=== PATIENT | female | born 1985 | race Two or more races ===

== ENCOUNTER 2018-09-28 07:53 | Emergency (ER) | payer BC ==
[2018-09-28 08:11] VITALS: BP 131/87
--- NOTE | 2018-09-28 08:32 | EDM.PDOC ---
ED HPI GENERAL MEDICAL PROBLEM - General Chief Complaint: Abdominal Pain Stated Complaint: ABDOMINAL PAIN Time Seen by Provider: 09/28/18 08:04 Source of Information: Reports: Patient, Family (), RN Notes Reviewed History Limitations: Reports: No Limitations - History of Present Illness INITIAL COMMENTS - FREE TEXT/NARRATIVE: The patient states that she developed sudden-onset lower pelvic pain - she indicates pain across her lower pelvis symmetrically - at 07:45 this morning, when she got up. She describes the pain as crampy in character. It radiates to her midline lower back. She has not identified any modifiers. She has associated nausea, but no emesis. No recent fever. No recent constipation or diarrhea, although she reports that she feels gassy. No recent urinary symptoms. She denies prior similar symptoms, however, the patient's pointed out that she complains of similar pain every month, although not as severe, when she gets her menstrual period. The patient's LMP was 08/28/2018, and was otherwise normal. She is . The patient states that she took some Tylenol right around 07:45, when the pain developed. Patient's PCP is RUSS Hinton. Treatments GRAIN SAMPLER: Reports: Acetaminophen Pelvic Pain Score (Numeric/FACES): 10 - Related Data Allergies Allergy/AdvReac Type Severity Reaction Status Date / Time No Known Allergies Allergy Verified 09/28/18 08:11 Past Medical History Endocrine/Metabolic History: Reports: Diabetes, Gestational, Obesity/BMI 30+ Social & Family History - Tobacco Use Smoking Status *Q: Former Smoker Years of Tobacco use: 15 Packs/Tins Daily: 0.5 Month/Year Tobacco Last Used: Quit 2015 - Alcohol Use Alcohol Use History: Yes Alcohol Use Frequency: Rarely - Recreational Drug Use Recreational Drug Use: No - Living Situation & Occupation Living situation: Reports: , with Spouse, with Family (3 kids) Occupation: Unemployed ED ROS GENERAL - Review of Systems Review Of Systems: ROS reveals no pertinent complaints other than HPI. ED EXAM, RENAL/ - Physical Exam Exam: See Below Exam Limited By: No Limitations General Appearance: Alert, WD/WN, No Apparent Distress Eye Exam: Bilateral Eye: EOMI, Normal Inspection Ears: Normal External Exam, Hearing Grossly Normal Nose: Normal Inspection Throat/Mouth: Normal Inspection, Normal Lips, Normal Voice, No Airway Compromise Head: Atraumatic, Normocephalic Neck: Normal Inspection, Full Range of Motion Respiratory/Chest: No Respiratory Distress, Lungs Clear, Normal Breath Sounds, No Accessory Muscle Use Cardiovascular: Normal Peripheral Pulses, Regular Rate, Rhythm, No Gallop, No JVD, No Murmur, No Rub GI/Abdominal: Normal Bowel Sounds, Soft, Non-Tender (including to the lower pelvis and suprapubically), No Organomegaly, No Distention, No Abnormal Bruit, No Mass, Other (Obese) (Female) Exam: Deferred Rectal (Female) Exam: Deferred Back Exam: Normal Inspection, Full Range of Motion, Other (No tenderness to midline lower back, where the patient reports her pain radiates to). No: CVA Tenderness (L), CVA Tenderness (R) Extremities: Normal Inspection, Normal Range of Motion, No Pedal Edema, Normal Capillary Refill Neurological: Alert, Oriented, Normal Cognition, No Motor/Sensory Deficits Psychiatric: Normal Affect Skin Exam: Warm, Dry, Intact, Normal Color, No Rash Course - Vital Signs Last Recorded V/S: Last Vital Signs Temp 36.3 C 09/28/18 08:08 Pulse 88 09/28/18 08:08 Resp 16 09/28/18 08:08 BP 131/87 09/28/18 08:08 Pulse Ox 100 09/28/18 08:08 - Orders/Labs/Meds Labs: Laboratory Tests 09/28/18 09/28/18 Range/Units 08:31 08:31 Urine Color Yellow (Yellow) Urine Appearance Clear (Clear) Urine pH 6.0 (5.0-8.0) Ur Specific [place] > or = 1.030 (1.005-1.030) Urine Protein Negative (Negative) Urine Glucose (UA) Negative (Negative) Urine Ketones Negative (Negative) Urine Occult Blood Negative (Negative) Urine Nitrite Negative (Negative) Urine Bilirubin Negative (Negative) Urine Urobilinogen 0.2 (0.2-1.0) Ur Leukocyte Esterase Negative (Negative) Urine RBC 0-5 (0-5) /hpf Urine WBC Not seen (0-5) /hpf Ur Squamous Epith Cells 0-5 (0-5) /hpf Urine Bacteria Not seen (FEW) /hpf Urine Mucus Not seen (FEW) /hpf Urine HCG, Qual Negative (NEGATIVE) - Re-Assessments/Exams Free Text/Narrative Re-Assessment/Exam: 09/28/18 08:26 The patient is most likely experiencing premenstrual cramps. It is been one month and one day since her last menstrual period - she is due - the patient's mentioned that she gets similar cramps, only not as severe, every month , when she has her menstrual period. That being said, the role of the emergency department is to rule out emergencies, therefore I have ordered a urinalysis and urine test, along with a pelvic ultrasound to rule out ovarian torsion. While there is no test for premenstrual cramps, if today's workup is negative, I will have to conclude that that is the cause of the patient's pain. 09/28/18 10:30 The patient's urinalysis is completely normal. Her urine test is negative. Transvaginal ultrasound is read by Dr. Camacho as: 1. Moderate amount of fluid around the right ovary extending into the cul-de- sac. Right ovary also shows a complicated cyst measuring up to 4.8 cm which likely represents collapsing cyst as the etiology for the free fluid. 2. Pelvic ultrasound is otherwise unremarkable. No findings are seen by this exam to indicate ovarian torsion. 09/28/18 10:36 Test results discussed with the patient and her . The patient's pain appears to be due to a ruptured right ovarian cyst. Recommended that she take [id number] ibuprofen. Additionally, it appears that the patient has not had a Pap smear in a long time, therefore I am recommending that she follow-up with her PCP to arrange for that. Departure - Departure Time of Disposition: 10:36 Disposition: Home, Self-Care 01 Condition: Good Clinical Impression: Ruptured ovarian cyst - Discharge Information *PRESCRIPTION DRUG MONITORING PROGRAM REVIEWED*: Not Applicable *COPY OF PRESCRIPTION DRUG MONITORING REPORT IN PATIENT NINA: Not Applicable Referrals: Eliana Seals PA-C [Primary Care Provider] - Forms: ED Department Discharge Additional Instructions: You were seen in the emergency room for sudden-onset lower pelvic pain this morning. Workup in the ER included a urinalysis, a urine test, and a pelvic ultrasound. Your urinalysis was normal. You do not have a UTI. Your urine test was negative. The ultrasound found a collapsed right ovarian cyst, with associated fluid, which is most likely the cause of your symptoms. Take [id number] ibuprofen, 2-3 tablets (400-600 mg) every 8 hours, with food, as needed for discomfort. Follow-up with your PCP, Eliana Seals, to arrange for a Pap smear. If any other problems, please do not hesitate to return to the ER.
--- NOTE | 2018-09-28 10:09 | US ---
Pelvic ultrasound: Real-time images were obtained transvaginally. Comparison: No previous pelvic ultrasound. Uterus is anteverted. Incidental nabothian cysts are present. No myometrial abnormality is seen. Endometrial thickness is 1.1 cm. Complicated cyst is noted within the right ovary measuring 4.8 cm which is felt to represent collapsing cyst. Fluid is seen around the right ovary extending into the cul-de-sac. Ovaries are otherwise unremarkable. Ovaries do not appear enlarged. No midline migration of the ovaries are seen. Measurements: Uterus: Length 9.6 cm, AP height 4.6 cm,transverse width 6.1 cm Right ovary: 4.8 x 3.2 x 4.3 cm Left ovary: 3.8 x 2.7 x 2.6 cm Impression: 1. Moderate amount of fluid around the right ovary extending into the cul-de-sac. Right ovary also shows a complicated cyst measuring up to 4.8 cm which likely represents collapsing cyst as the etiology for the free fluid. 2. Pelvic ultrasound is otherwise unremarkable. No findings are seen by this exam to indicate ovarian torsion. Diagnostic code #3
== END 2018-09-28 10:55 | disposition home or self-care (01) ==
LOC: JD.ED 07:53
DX: N83.291 Other ovarian cyst, right side (principal); Z87.891 Personal history of nicotine dependence
CPT/HCPCS: 76830; 76830-26; 81001; 81025; 99283; 99284-25